=== PATIENT | female | born 1975 | race African-American/Black ===

== ENCOUNTER → 2017-08-11 | Outpatient (CLI) | payer OTHER ==
[~2017-08-11] MED LIST: ADVIL200 M3 PO; BC POWDER PO; HYDROCODONE-AP1 EAC6 PO
== END ==
LOC: RAD 01:30
DX: Z12.31 Encounter for screening mammogram for malignant neoplasm of breast (principal)

== ENCOUNTER → 2018-06-16 | Outpatient (CLI) | payer OTHER | LOC: ULTRA 09:47 | DX: N92.6 Irregular menstruation, unspecified (principal); N88.8 Other specified noninflammatory disorders of cervix uteri ==

== ENCOUNTER → 2018-08-11 | Outpatient (CLI) | payer OTHER | LOC: RAD 08:30 | DX: Z12.31 Encounter for screening mammogram for malignant neoplasm of breast (principal) ==

== ENCOUNTER → 2018-08-18 | Outpatient (CLI) | payer OTHER | LOC: RAD 01:52 | DX: N63.23 Unspecified lump in the left breast, lower outer quadrant (principal) ==

== ENCOUNTER → 2019-10-09 | Outpatient (CLI) | payer OTHER | LOC: RAD 10:55 | PROVIDERS: ATTEND Family Medicine | DX: Z12.31 Encounter for screening mammogram for malignant neoplasm of breast (principal) ==

== ENCOUNTER → 2020-02-16 | Outpatient (CLI) | payer OTHER | LOC: ULTRA 12:43 | PROVIDERS: ATTEND Family Medicine | DX: N83.201 Unspecified ovarian cyst, right side (principal) ==

== ENCOUNTER → 2020-10-22 | Outpatient (CLI) | payer BC | LOC: BC 13:27 | PROVIDERS: ATTEND Family Medicine | DX: Z12.31 Encounter for screening mammogram for malignant neoplasm of breast (principal) ==